=== PATIENT | male | born 1995 | race Hispanic/Latino ===

== ENCOUNTER 2020-04-29 11:48 | Emergency (ER) | payer OTHER ==
[~2020-04-29] VITALS: Ht 188 cm; Wt 88.7 kg
[2020-04-29 11:49] VITALS: BP 143/64
[2020-04-29] MEDS ORDERED: ROBA750T4 PO (12:38)
== END 2020-04-29 12:46 | disposition home or self-care (01) ==
LOC: M ED 11:48
DX: S39.012A Strain of muscle, fascia and tendon of lower back, initial encounter (principal); X58.XXXA Exposure to other specified factors, initial encounter; Y92.89 Other specified places as the place of occurrence of the external cause; Y93.9 Activity, unspecified; Y99.1 Military activity

== ENCOUNTER 2020-09-16 13:28 | Emergency (ER) | payer OTHER ==
[~2020-09-16] VITALS: Ht 182.9 cm; Wt 93.1 kg
[~2020-09-16 13:28] MED LIST: ROBA750T4 PO
[2020-09-16 13:29] VITALS: BP 133/71
[2020-09-16] MEDS ORDERED: SIME180C25 PO (16:44)
[2020-09-16] MEDS ORDERED: PEPC1TAB5 PO (16:44)
== END 2020-09-16 17:23 | disposition home or self-care (01) ==
LOC: M ED 17:13
DX: R06.6 Hiccough (principal); R10.13 Epigastric pain; K21.9 Gastro-esophageal reflux disease without esophagitis; F17.200 Nicotine dependence, unspecified, uncomplicated; Z79.899 Other long term (current) drug therapy